=== PATIENT | female | born 1935 | race Caucasian/White ===

== ENCOUNTER 2022-03-19 16:49 | Emergency (ER) | payer OTHER ==
[~2022-03-19] VITALS: Ht 160 cm; Wt 72.6 kg
[~2022-03-19 16:49] MED LIST: ASPI81CH PO; ATOR20 PO; DOCU100 PO; FERR325 PO; FLUO10 PO; Flonase 0.05% N16 GM; HYDCHL25 PO; LOVA40 PO; OMEPRAZOLE MAGN20 MG PO; Prinivil10 MG PO; Verapamil HCl360 MG PO
[2022-03-19 20:35] LABS: Source, Urine Clean Catch
[2022-03-19 20:40] LABS: Appearance, Urine Clear (Clear); Bilirubin, Urine Neg (Neg); Blood, Urine 1+ (Neg); Color, Urine Yellow (P-Yellow); Glucose Qualitative, Urine Neg (Neg); Ketones, Urine Neg (Neg); Leukocyte Esterase, Urine Neg (Neg); Nitrite, Urine Neg (Neg); Protein, Urine 2+ (Neg); Specific Gravity, Urine 1.015 (1.003-1.022); Urobilinogen, Urine NORM (Normal)
[2022-03-19 20:49] LABS: Bacteria Few /hpf; Hyaline Casts 0-2 /lpf (0-2); RBC Cast 0-2 /lpf (0); Squamous Epithelial Cells Few /hpf (Few)
[2022-03-20] MEDS ORDERED: IBUP400 PO (14:15)
[2022-03-20] MEDS ORDERED: ACET500 PO (14:15)
== END 2022-03-20 14:41 | disposition home or self-care (01) ==
LOC: ER 16:49
PROVIDERS: Physician Assistant
DX: M54.50 Low back pain, unspecified (principal); M51.36 Other intervertebral disc degeneration, lumbar region; K21.9 Gastro-esophageal reflux disease without esophagitis; I10 Essential (primary) hypertension; Z79.899 Other long term (current) drug therapy; Z79.82 Long term (current) use of aspirin; Z88.0 Allergy status to penicillin; Z86.73 Personal history of transient ischemic attack (TIA), and cerebral infarction without residual deficits
CPT/HCPCS: 72100; 72148; 81001; 97161; 97530; A9270; J1100; J1885; J2930

== ENCOUNTER 2023-08-03 12:44 | Emergency (ER) | payer OTHER ==
[~2023-08-03] VITALS: Ht 160 cm; Wt 63.5 kg
[~2023-08-03 12:44] MED LIST changes: +ACET500 PO; +IBUP400 PO
[2023-08-03 13:41] LABS: BASOPHILS ABSOLUTE AUTO 0.02 K/mm3 (0.00-0.23); BASOPHILS PERCENT AUTO 0 % (0-2); EOSINOPHILS PERCENT AUTO 2 % (0-6); Hematocrit 31.8 % (33.0-51.0); Hemoglobin 10.4 g/dL (11.5-16.0); IMMATURE GRAN ABSOLUTE AUTO 0.01 K/mm3 (0.00-0.10); IMMATURE GRAN PERCENT AUTO 0 % (0-1); LYMPHOCYTES ABSOLUTE AUTO 1.75 K/mm3 (0.84-5.20); LYMPHOCYTES PERCENT AUTO 29 % (21-46); MONOCYTES ABSOLUTE AUTO 0.58 K/mm3 (0.16-1.47); MONOCYTES PERCENT AUTO 9 % (4-13); Mean Corpuscular HGB 26.9 pg (26.0-34.0); Mean Corpuscular HGB Conc 32.7 g/dL (31.5-36.5); Mean Corpuscular Volume 82 fL (80-100); NEUTROPHILS ABSOLUTE AUTO 3.69 K/mm3 (1.96-9.15); NEUTROPHILS PERCENT AUTO 60 % (41-73); Platelet Count 262 K/mm3 (150-400); RDW Standard Deviation 39.5 fL (35.1-46.3); Red Blood Cell Count 3.86 M/mm3 (3.80-5.20); White Blood Cell Count 6.15 K/mm3 (4.00-11.30)
[2023-08-03 14:22] LABS: Albumin, Blood 3.3 g/dL (3.4-5.0); Albumin/Globulin Ratio 0.9 (0.8-1.8); Bilirubin, Total 0.4 mg/dL (0.1-1.0); Bun/Creatinine Ratio 14.7 (12.0-20.0); Calcium, Blood 9.1 mg/dL (8.5-10.1); Creatinine, Blood 1.16 mg/dL (0.40-1.00); Globulin, Blood 3.8 g/dL (2.2-4.0); Potassium, Blood 2.7 mmol/L (3.5-5.5); Total Protein, Blood 7.1 g/dL (6.4-8.2)
[2023-08-03] MEDS ORDERED: PRED20 PO (15:28)
[2023-08-03] MEDS ORDERED: AMLO5 PO (15:28)
[2023-08-03 15:30] VITALS: BP 190/109
== END 2023-08-03 15:42 | disposition left against medical advice (07) ==
LOC: ER 12:44
PROVIDERS: Student in an Organized Health Care Education/Training Program
DX: H54.61 Unqualified visual loss, right eye, normal vision left eye (principal); R70.0 Elevated erythrocyte sedimentation rate; R79.82 Elevated C-reactive protein (CRP); I10 Essential (primary) hypertension; E78.00 Pure hypercholesterolemia, unspecified; Z88.0 Allergy status to penicillin; Z79.899 Other long term (current) drug therapy; Z86.73 Personal history of transient ischemic attack (TIA), and cerebral infarction without residual deficits
CPT/HCPCS: 70450; 80053; 85025; 85651; 86140; 93005; 93010; 99285-25

== ENCOUNTER → 2023-08-05 | Outpatient (CLI) | payer OTHER ==
[~2023-08-05] MED LIST changes: +AMLO5 PO; +PRED20 PO
[2023-08-05 19:12] LABS: Bun/Creatinine Ratio 18.8 (12.0-20.0); Calcium, Blood 9.5 mg/dL (8.5-10.1); Creatinine, Blood 0.96 mg/dL (0.40-1.00)
== END | disposition home or self-care (01) ==
LOC: LAB SHORT 18:35 → LAB 18:35
PROVIDERS: Family Medicine
DX: E87.6 Hypokalemia (principal)
CPT/HCPCS: 80048

== ENCOUNTER 2023-10-03 16:47 | Observation (INO) | payer OTHER ==
[2023-10-03 17:28] LABS: BASOPHILS ABSOLUTE AUTO 0.05 K/mm3 (0.00-0.23); BASOPHILS PERCENT AUTO 1 % (0-2); EOSINOPHILS ABSOLUTE AUTO 0.14 K/mm3 (0.00-0.68); EOSINOPHILS PERCENT AUTO 2 % (0-6); Hemoglobin 12.4 g/dL (11.5-16.0); IMMATURE GRAN ABSOLUTE AUTO 0.01 K/mm3 (0.00-0.10); IMMATURE GRAN PERCENT AUTO 0 % (0-1); LYMPHOCYTES ABSOLUTE AUTO 1.77 K/mm3 (0.84-5.20); LYMPHOCYTES PERCENT AUTO 27 % (21-46); MONOCYTES ABSOLUTE AUTO 0.71 K/mm3 (0.16-1.47); MONOCYTES PERCENT AUTO 11 % (4-13); Mean Corpuscular HGB 26.4 pg (26.0-34.0); Mean Corpuscular HGB Conc 32.6 g/dL (31.5-36.5); Mean Corpuscular Volume 81 fL (80-100); Mean Platelet Volume 9.6 fL (9.1-12.4); NEUTROPHILS ABSOLUTE AUTO 3.87 K/mm3 (1.96-9.15); NEUTROPHILS PERCENT AUTO 59 % (41-73); Platelet Count 237 K/mm3 (150-400); RDW Coefficient Variation 13.3 % (11.7-14.2); RDW Standard Deviation 39.2 fL (35.1-46.3); Red Blood Cell Count 4.69 M/mm3 (3.80-5.20); White Blood Cell Count 6.55 K/mm3 (4.00-11.30)
[2023-10-03 17:46] LABS: Albumin/Globulin Ratio 1.1 (0.8-1.8); Bilirubin, Total 0.6 mg/dL (0.1-1.0); Bun/Creatinine Ratio 15.2 (12.0-20.0); Calcium, Blood 9.7 mg/dL (8.5-10.1); Creatinine, Blood 1.05 mg/dL (0.40-1.00); Globulin, Blood 3.7 g/dL (2.2-4.0); Potassium, Blood 3.4 mmol/L (3.5-5.5); Total Protein, Blood 7.7 g/dL (6.4-8.2)
[2023-10-03] MEDS ORDERED: CATAPRES0.1 MG PO (17:53)
[2023-10-03] MEDS ORDERED: Aspir 8181 MG PO (17:53)
[2023-10-03] MEDS ORDERED: VERAPAMIL ER120 M1 PO (20:48)
[2023-10-03 22:40] VITALS: BP 181/67
[2023-10-03 22:45] VITALS: BP 181/67
[2023-10-04] VITALS (7 sets, daily range): BP systolic 115–177; BP diastolic 47–73
--- NOTE | 2023-10-04 03:22 | NUR ---
PT ARRIVED TO THE UNIT AT 2235. PT REQUIRED 2P SBA FROM W/C TO HOSPITAL BED. PT A&O x4, ON RA, AFEBRILE. PT ADMITTED FOR HYPERTENSIVE URGENCY. AT 0230: PT'S BP 177/61, HR 70. PT DENIES CHEST PAIN, NO SOB, NO ROJAS. BLOOD PRESSURE CHECKS Q4 HRS. PT ON TELEMETRY SR WITH PVC AT 67 BPM. PT MAKES NEEDS KNOWN, PLEASANT AND COOPERATIVE WITH CARE PROVIDED. PT HAS LOST VISION IN HER R EYE, AND HAS A NEW BLURRY VISION IN L EYE. BED ALARM IS TURNED ON FOR SAFETY. PT IS NPO UNTIL LAB/BLOOD DRAW THIS AM. CALL LIGHT WITHIN REACH, WCTM.
[2023-10-04 05:50] LABS: CHOL/HDL RATIO 4.3; Cholesterol 213 mg/dL (50-200); HDL Cholesterol 50 mg/dL (>39); Low Density Lipoprotein Chol 149 mg/dL (0-110); Triglycerides 68 mg/dL (30-160); Very Low Density Lipoprot Chol 13 mg/dL (6-32)
--- NOTE | 2023-10-04 19:21 | NUR ---
SHIFT SUMMARY: PT A/OX4, STANDBY ASSIST. PLEASANT AND COOPERATIVE. PT BLOOD PRESSURE IMPROVED THROUGHOUT THE DAY. PT DENIES HAVING ANY BLURRED VISION IN L EYE TODAY. NO REPORTS OF CP/PRESSURE, NO CALLS FROM TELE WITH CONCERNS. PT TOLERATED IRBESARTAN WITHOUT COMPLAINTS.
[2023-10-05 03:41] VITALS: BP 116/49
--- NOTE | 2023-10-05 05:44 | NUR ---
END OF SHIFT SUMMARY PT SLEPT THE MAJORITY OF THE SHIFT LAST NIGHT. PT A&O x4, VSS, BP IMPROVED. PT DENIED ANY SOB OR CHEST PAIN. BP AT 0341 WAS 114/55 (MAP 75) AND PULSE 58. PUREWICK IN PLACE TO HELP PREVENT INCONTINENT EPISODES AND PROMOTE GOOD SLEEP. PT PLEASANT AND COOPERATIVE WITH CARE PROVIDED. PT CALLS APPROPRIATELY, ABLE TO MAKE NEEDS KNOWN. CALL LIGHT WITHIN REACH, WCTM.
[2023-10-05 06:03] LABS: BASOPHILS ABSOLUTE AUTO 0.03 K/mm3 (0.00-0.23); BASOPHILS PERCENT AUTO 1 % (0-2); EOSINOPHILS ABSOLUTE AUTO 0.18 K/mm3 (0.00-0.68); EOSINOPHILS PERCENT AUTO 3 % (0-6); Hematocrit 32.3 % (33.0-51.0); Hemoglobin 10.7 g/dL (11.5-16.0); IMMATURE GRAN ABSOLUTE AUTO 0.02 K/mm3 (0.00-0.10); IMMATURE GRAN PERCENT AUTO 0 % (0-1); LYMPHOCYTES ABSOLUTE AUTO 1.99 K/mm3 (0.84-5.20); LYMPHOCYTES PERCENT AUTO 37 % (21-46); MONOCYTES ABSOLUTE AUTO 0.72 K/mm3 (0.16-1.47); MONOCYTES PERCENT AUTO 14 % (4-13); Mean Corpuscular HGB 26.8 pg (26.0-34.0); Mean Corpuscular HGB Conc 33.1 g/dL (31.5-36.5); Mean Corpuscular Volume 81 fL (80-100); NEUTROPHILS ABSOLUTE AUTO 2.38 K/mm3 (1.96-9.15); NEUTROPHILS PERCENT AUTO 45 % (41-73); Platelet Count 218 K/mm3 (150-400); RDW Coefficient Variation 13.2 % (11.7-14.2); RDW Standard Deviation 38.7 fL (35.1-46.3); Red Blood Cell Count 3.99 M/mm3 (3.80-5.20); White Blood Cell Count 5.32 K/mm3 (4.00-11.30)
[2023-10-05 06:33] LABS: Albumin, Blood 2.9 g/dL (3.4-5.0); Albumin/Globulin Ratio 0.9 (0.8-1.8); Bilirubin, Total 0.5 mg/dL (0.1-1.0); Bun/Creatinine Ratio 18.5 (12.0-20.0); Calcium, Blood 8.6 mg/dL (8.5-10.1); Creatinine, Blood 1.62 mg/dL (0.40-1.00); Globulin, Blood 3.2 g/dL (2.2-4.0); Magnesium, Blood 2.1 mg/dL (1.6-2.4); Phosphorus, Blood 4.6 mg/dL (2.5-4.9); Potassium, Blood 3.4 mmol/L (3.5-5.5); Total Protein, Blood 6.1 g/dL (6.4-8.2)
[2023-10-05 08:18] VITALS: BP 127/63
[2023-10-05 08:51] VITALS: BP 127/65
[2023-10-05] MEDS ORDERED: CATAPRES0.1 MG PO (13:18)
[2023-10-05] MEDS ORDERED: HYDCHL25 PO (13:18)
[2023-10-05] MEDS ORDERED: POTA10T PO (13:19)
--- NOTE | 2023-10-05 15:12 | NUR ---
PATIENT DISCHARGED TO HOME ACCOMPANIED BY HER NEIGHBOR, WHO IS DRIVING. TELEMETRY AND IV SALINE LOCK REMOVED WITHOUT INCIDENT. VERBALIZED UNDERSTANDING OF D/C INSTRUCTIONS, BUT WITH HER IMPAIRED VISION, SHE STATED SHE WILL READ THESE WITH HER MAGNIFIERS WHEN SHE GETS HOME. OFF UNIT VIA W/C AT 1355. NO PERSONAL BELONGINGS LEFT BEHIND IN ROOM.
[2023-10-07 10:08] LABS: ALDOSTERONE 9.4 ng/dL; ALDOSTERONE/RENINACTIVITY CALC 18.7 ratio (<=25.0); RENIN ACTIVITY 0.5 ng/mL/hr
[2023-10-09 12:09] LABS: DOPAMINE <130 pmol/L (<=240); EPINEPHRINE 98 pmol/L (<=330); NOREPINEPHRINE 2946 pmol/L (1050-4800)
== END 2023-10-05 14:08 | disposition home or self-care (01) ==
LOC: ER 16:47 → MEDS 16:48
PROVIDERS: Hospitalist; Nurse Practitioner Acute Care; Physician Assistant; ADMIT Internal Medicine
DX: I16.0 Hypertensive urgency (principal); E87.6 Hypokalemia; F32.9 Major depressive disorder, single episode, unspecified; D50.9 Iron deficiency anemia, unspecified; R07.89 Other chest pain; I73.9 Peripheral vascular disease, unspecified; Z88.0 Allergy status to penicillin; Z79.899 Other long term (current) drug therapy
CPT/HCPCS: 36415; 70450; 71046; 80053; 80061; 82088; 82384; 83735; 83880; 84100; 84244; 84484; 85025; 93005; 93010; 93975; 96372; 99285-25; A9270; G0378; J1650